=== PATIENT | male | born 1960 | race Caucasian/White ===

== ENCOUNTER 2016-09-26 11:01 | Emergency (ER) | payer OTHER ==
[~2016-09-26] VITALS: Ht 190.5 cm; Wt 93.2 kg
[2016-09-26 11:06] VITALS: BP 140/98; PULSE 75; RESP 17; O2SAT 97
[2016-09-26] MEDS ORDERED: Pantoprazole 4 mg/mL 10 mL Inj IVPUSH ONE (11:10)
[2016-09-26] MEDS ORDERED: Ondansetron 2 mg/mL 2 mL Inj IVPUSH PRN (11:10)
[2016-09-26] MEDS ORDERED: Ondansetron 2 mg/mL 2 mL Inj IVPUSH ONE (11:10)
[2016-09-26] MEDS ORDERED: 0.9% Sodium Chloride 1,000 ML IV ONE ×3 (11:10→15:47)
--- NOTE | 2016-09-26 11:10 | ED.REPORT ---
HPI-Abd Pain M 40 and Over Date of Service Sep 26, 2016 ED Provider: Dr. Bryant Pt is a 56 y/o male presenting to the ED with his c/o N/V/D onset 06:00 today. He c/o associated abdominal pain which he states is secondary to vomiting , diaphoresis. Pt denies hematemesis, bloody stools, melena, fever, chills, cough, SOB, CP. He states this has happened multiple times previously for the past 7-8 years but workups have been negative thus far. There are no known triggers for these episodes. He has been diagnosed with cyclic vomiting syndrome. He has Zofran available at home but when he gets to this point he knows that [id number] medications will not turn it around. Nursing Notes Stated Complaint: VOMITING AND STOMACH CRAMPING Chief Complaint: Male Abdominal Pain Nursing Notes Reviewed: Yes Allergies: Coded Allergies: No Known Allergies (Unverified , 09/26/16) General Time Seen by MD: 11:09 Chief Complaint Other (nvd) Hx Obtained From: Patient Arrived By: Walk-in Sudden in Onset?: No Onset Occurred: 5 - 8 hours ago Symptom Duration: Since onset Progression since Onset: Constant Location: : Epigastric Quality: Aching Radiation: : Does not radiate Severity: Current: Mild Severity: Maximum: Mild Recent Healthcare: Prior workup Similar Sx Previous: Yes Past Medical History Past Medical History Multiple episodes of nausea, vomiting, and diarrhea for the past 8 years - GI workups so far negative Past Surgical History None reported Smoking History Unknown if Ever Smoker Ambulatory Status Independent Review of Systems Constitutional: Denies: Chills, Fever Respiratory: Denies: Non-productive cough, Shortness of breath Cardiovascular: Denies: Chest pain, Dyspnea on exertion GI: Reports: Abdominal pain, Diarrhea, Nausea, Vomiting, Denies: Bloody/tarry stool, Hematemesis, Melena Complete sys rev & neg: except as marked. Skin: Reports Diaphoresis, Denies Rash Physical Exam Initial Vital Signs Vital Signs (First) Date Time Temp Pulse Resp B/P Pulse Ox O2 Delivery O2 Flow Rate FiO2 09/26/16 11:06 35.6 75 17 140/98 97 Room Air Initial VS: Reviewed, Vital signs normal Head / Eyes: Atraumatic, Normocephalic, PERRL Neck: Supple, Full range of motion Extremities: Vascular intact, Neuro intact, No swelling, No tenderness Skin: Warm, Dry, No cyanosis Neurologic: Alert, Oriented, Nonfocal Psychiatric: Mood/affect normal, Behavior normal, Normal thought content General/Constitutional: Awake, Alert, Cooperative, Not toxic appearing Distress / Hydration: Positive: Distress mild Appearance / Presentation: Positive: Ill appearing/not toxic, Pale, Uncomfortable Actively vomiting Respiratory / Chest: Atraumatic, Breath sounds NL, Breath sounds = bilat, No respiratory distress, No rales, No rhonchi, No wheezing, No retractions, No stridor, No chest tenderness, No chest wall deformity, No crepitus Cardiovascular: Heart rate NL, Regular rhythm, Heart sounds NL, No gallop, No murmurs, No rubs, Cap refill not delayed, Peripheral circulation NL Abdomen: Atraumatic, Soft, No guarding, No rebound, No distention, No palpable mass Tenderness/Guarding/Rebound: Positive: Tender epigastric (mild) Back: Full range of motion, Painless range of motion Interpretation & Diagnostics Lab Results Interpretation Result Diagram: 09/26/16 1126 09/26/16 1126 Test 09/26/16 11:26 09/26/16 15:21 White Blood Count 13.6th/mm3 (3.8-10.1) Red Blood Count 5.81mil/mm3 (4.40-5.80) Hemoglobin 15.9g/dL (13.8-17.2) Hematocrit 45.6% (41.0-50.0) Mean Corpuscular Volume 78.5fL (81-100) Mean Corpuscular Hemoglobin 27.4pg (27.0-35.0) Mean Corpuscular Hemoglobin Concent 34.9% (32.0-37.0) Red Cell Distribution Width 15.0% (12.3-15.4) Platelet Count 278bil/L (150-400) Neutrophils (%) (Auto) 85.1% (40-74) Lymphocytes (%) (Auto) 11.7% (14-46) Monocytes (%) (Auto) 2.4% (4-12) Eosinophils (%) (Auto) 0.3% (0-5) Basophils (%) (Auto) 0.2% (0-3) Sodium Level 139mEq/L (134-144) Potassium Level 4.1mEq/L (3.5-5.2) Chloride Level 103mEq/L (97-108) Carbon Dioxide Level 16mmol/L (18-29) Blood Urea Nitrogen 14mg/dL (6-24) Creatinine 0.90mg/dL (0.76-1.27) Estimat Glomerular Filtration Rate 93mL/min (>59) Glucose Level 130mg/dL (60-99) Lactic Acid Level 1.8mmol/L (0.4-2.0) Calcium Level 10.2mg/dL (8.5-10.1) Magnesium Level 2.0mg/dL (1.6-2.6) Total Bilirubin 0.6mg/dL (0.0-1.2) Aspartate Amino Transf (AST/SGOT) 25U/L (0-50) Alanine Aminotransferase (ALT/SGPT) 33U/L (0-44) Alkaline Phosphatase 52U/L (25-150) Troponin T < 0.010ug/L (0.0-0.011) Total Protein 7.7g/dL (6.4-8.4) Albumin 4.6g/dL (3.4-5.0) Lipase 74U/L (13-60) Urine Color Yellow (YELLOW) Urine Appearance Clear (CLEAR,HAZY) Urine pH 8.0 (5.0-8.0) Urine Specific Brooks 1.015 (1.003-1.035) Urine Protein Negativemg/dL (NEG,TRACE) Urine Glucose (UA) 100mg/dL (NEGATIVE) Urine Ketones 15mg/dL (NEGATIVE) Urine Occult Blood Negative (NEGATIVE) Urine Nitrite Negative (NEGATIVE) Urine Bilirubin Negative (NEGATIVE) Urine Urobilinogen Normalmg/dL (NORMAL) Urine Leukocyte Esterase Negative (NEGATIVE) Urine RBC 0-2/hpf (0-2) Urine WBC 0-5/hpf (0-5) Urine Epithelial Cells None/hpf (NONE-MOD) Urine Crystals None seen (NONE SEEN) Urine Bacteria Few/hpf (NONE-FEW) Urine Hyaline Casts None/lpf (NONE) Urine Granular Casts None seen (NONE SEEN) Urine Waxy Casts None seen (NONE SEEN) Urine Red Blood Cell Casts None seen (NONE SEEN) Urine White Blood Cell Casts None seen (NONE SEEN) Urine Mucus None seen (None Seen) Urine Trichomonas None seen (NONE SEEN) Urine Yeast None (NONE SEEN) Urinalysis Comment None Urine Culture Reflexed Not indicated ECG Interpretation Time: 15:34 Interpreted by: ED physician Normal ECG Interpretation: Normal ECG w/ rate of... (83), Normal rate, Normal sinus rhythm, No acute ischemic changes, Normal QRS, Normal axis, Normal intervals, Adequate tracing X-Ray Abdominal Interpretation IMPRESSION: No abnormality is seen in acute abdomen series. Cause of pain is not identified. Dictated by: Vincenzo Delaney M.D. on 09/26/2016 at 13:33 Approved by: Vincenzo Delaney M.D. on 09/26/2016 at 13:33 Study: 4 view Interpretation / Wet Read by: Interpret - Radiologist Re-Eval/Medical Decision Med Decision/Clinical Course 56-year-old male with a history of cyclic vomiting syndrome that occurs episodically without triggers approximately every 6 months presents with a typical episode. He was treated with 2 L of normal saline, Zofran, Phenergan, Haldol, Ativan, and Dilaudid for abdominal pain. When he first arrived he was in significant distress, diaphoretic, and actively vomiting. At the time of discharge he was feeling much better. He states that he has had significant workups in the past by his gastroenterology have been unrevealing including upper and lower endoscopy and multiple lab tests. Today he has some mild leukocytosis which he states is typical for him during these episodes but otherwise labs were okay. I also considered cardiac causes. He had an unremarkable EKG as well as negative troponin. Patient is appreciative of the care and plans to follow-up with his PCP. He has Zofran at home available for any recurrent nausea. Time of Eval: 14:27 Re-Evaluation/Progress Note: Pt rechecked. Still experiencing abdominal pain. Vomiting has ceased. He is feeling a little bit better. Time of Eval: 16:33 Re-Evaluation/Progress Note: Pt rechecked. No vomiting. Informed pt of plan for treatment. Pt understands and agrees with plan for treatment. F/U instructions and RTER warnings given. All questions addressed. Counseled Regarding: Diagnosis, Lab results, Need for follow-up, When/why to return to ED Discharge & Departure Primary Impression: Cyclical vomiting Vomiting Intractability: non-intractable Nausea presence: with nausea Qualified Code: G43.A0 - Cyclical vomiting, not intractable Additional Impressions: Leukocytosis Leukocytosis type: unspecified Qualified Code: D72.829 - Elevated white blood cell count, unspecified Generalized abdominal pain Ruled Out: Acute coronary syndrome Disposition: Home Vital Signs - All Vital Signs Date Time Temp Pulse Resp B/P Pulse Ox O2 Delivery O2 Flow Rate FiO2 09/26/16 17:13 36.2 94 18 123/85 100 Room Air 09/26/16 14:54 36.3 72 13 160/93 98 Room Air 09/26/16 13:34 50 153/92 100 Room Air 09/26/16 11:06 35.6 75 17 140/98 97 Room Air )( All Prior VS Reviewed: Yes Condition: Stable Patient Instructions: Acute Nausea and Vomiting (ED) Additional Instructions: Your labs were normal other than a mildly elevated WBC count which can occur with vomiting. Take your home Zofran as needed for nausea or vomiting. Follow-up with your primary care doctor next week. Discuss the possibility of standing orders at the [facility]. Return to the emergency department for high fever, blood in your vomit or stool , intractable vomiting, severe abdominal pain, or for other concerning symptoms. Referrals: OTHER,PHYSICIAN (PCP) (Family) Scribe Attestation Portions of this note were transcribed by Rasta Amador. I, Dr. Bryant personally performed the history, physical exam and medical decision-making; I reviewed and confirmed the accuracy of the information in the transcribed note. Signed by Juan Bahena, 09/26/16 - 1130 Eugenio Bryant DO Sep 26, 2016 11:10 RASTA AMADOR Sep 26, 2016 11:17
[2016-09-26] MEDS: HYDROmorphone 0.5 mg/0.5 mL iSecure Syringe IVPUSH PRN ×3 (11:34→15:37)
[2016-09-26 11:56] LABS: BASOPHILS % (AUTO) 0.2 % (0-3); EOSINOPHILS % (AUTO) 0.3 % (0-5); MONOCYTES % (AUTO) 2.4 % (4-12); Mean Corpuscular Hemoglobin 27.4 pg (27.0-35.0); Mean Corpuscular Volume 78.5 fL (81-100); NEUTROPHILS % (AUTO) 85.1 % (40-74); Platelet Count 278 bil/L (150-400)
[2016-09-26] MEDS ORDERED: Promethazine Inj 25 MG in 0.9% Sodium Chloride-Pha MIX 100 ML IV ONE (12:35)
[2016-09-26 13:34] VITALS: BP 153/92; PULSE 50; O2SAT 100
--- NOTE | 2016-09-26 13:35 | DRSVH ---
PROCEDURE: X-RAY ACUTE ABDOMINAL SERIES ([id number]) INDICATIONS: abdominal pain TECHNIQUE: One view chest and two views of the abdomen were acquired. COMPARISON: [facility], , ABD ACUTE SERIES, 02/17/2015, 22:57. FINDINGS: Surgical changes and devices: None. Chest: Lungs are clear. Heart size is normal. No pleural effusions. No pneumoperitoneum. Abdomen: Bowel gas pattern is normal. No suspicious calcifications. Visualized solid organ contour s appear normal. Bones: No suspicious bony lesions. IMPRESSION: No abnormality is seen in acute abdomen series. Cause of pain is not identified. Dictated by: Vincenzo Delaney M.D. on 09/26/2016 at 13:33 Approved by: iVncenzo Delaney M.D. on 09/26/2016 at 13:33
[2016-09-26] MEDS ORDERED: Haloperidol 5 mg/mL Inj IVPUSH ONE (14:35)
[2016-09-26 14:54] VITALS: BP 160/93; PULSE 72; RESP 13; O2SAT 98
[2016-09-26 15:49] LABS: APPEARANCE,URINE CLEAR (CLEAR,HAZY); COLOR,URINE YELLOW (YELLOW); OCCULT BLOOD,URINE NEGATIVE (NEGATIVE); UROBILINOGEN,URINE NORMAL (NORMAL)
[2016-09-26 17:13] VITALS: BP 123/85; PULSE 94; RESP 18; O2SAT 100
== END 2016-09-26 17:17 | disposition home or self-care (01) ==
LOC: SED 11:01
DX: G43.A0 Cyclical vomiting, in migraine, not intractable (principal); D72.829 Elevated white blood cell count, unspecified; R10.84 Generalized abdominal pain
CPT/HCPCS: 74022; 80053; 81000; 83605; 83690; 83735; 84484; 85025; 93005; 96361; 96374; 96375; 96376; 99285; J1170; J1630; J2060; J2405; J2550; J7030

== ENCOUNTER 2016-09-28 07:16 | Emergency (ER) | payer OTHER ==
[~2016-09-28] VITALS: Ht 190.5 cm; Wt 93.2 kg
[2016-09-28 07:18] VITALS: BP 161/96; PULSE 61; RESP 20; O2SAT 97
[2016-09-28] MEDS ORDERED: Ondansetron 2 mg/mL 2 mL Inj ONE (07:30)
--- NOTE | 2016-09-28 07:31 | ED.REPORT ---
HPI-NVD Date of Service Sep 28, 2016 ED Provider: Dr. Sam Best The patient is a 56 year old male w/ a hx of of cyclical vomiting who presents to the ED due to cyclical vomiting onset 2 hrs ago. He is actively retching in triage. The patient requests Dilaudid in the room. He was seen here 2 days ago for n/v/d and similar symptoms. He states this has happened multiple times previously for the past 7-8 years but workups have been negative thus far. There are no known triggers for these episodes. He has been diagnosed with cyclic vomiting syndrome by Dr. Raz INIGUEZ in [place]. He uses Zofran ODT at home but when he gets to this point he knows that [id number] medications will not turn it around. Associated symptoms include diarrhea, chills, and diaphoresis. He denies fever. He denies drug and alcohol use. Nursing Notes Stated Complaint: VOMITING Chief Complaint: Male Abdominal Pain Nursing Notes Reviewed: Yes Allergies: Coded Allergies: No Known Allergies (Unverified , 09/26/16) General Time Seen by MD: 07:30 Chief Complaint Vomiting Hx Obtained From: Patient Arrived By: Walk-in Onset Occurred: Just prior to arrival Symptom Duration: Since onset Past Medical History Past Medical History Multiple episodes of nausea, vomiting, and diarrhea for the past 8 years - GI workups so far negative Past Surgical History None reported Smoking History Unknown if Ever Smoker Social History Other Social History: Good social support, Local resident Ambulatory Status Independent Review of Systems Constitutional: Reports: Chills, Denies: Fever GI: Reports: Vomiting Skin: Reports Diaphoresis Complete sys rev & neg: except as marked. Physical Exam Initial Vital Signs Vital Signs (First) Date Time Temp Pulse Resp B/P Pulse Ox O2 Delivery O2 Flow Rate FiO2 09/28/16 07:18 35.8 61 20 161/96 97 Initial VS: Reviewed Head / Eyes: Atraumatic, Normocephalic, PERRL ENT: Mucous membranes moist, Conjunctiva normal Respiratory: Breath sounds normal, Clear to auscultation, No respiratory distress Extremities: Vascular intact, No swelling, No tenderness Skin: Warm, Dry General/Constitutional: Awake, Alert Distress / Hydration: Positive: Distress mild Abdomen: Atraumatic, Soft, Non-tender, No guarding, No rebound, No distention Heart Rate / Rhythm: Positive: Bradycardia Interpretation & Diagnostics Lab Results Interpretation Result Diagram: 09/28/16 0705 09/28/16 0705 Test 09/28/16 07:05 09/28/16 07:25 White Blood Count 10.4th/mm3 (3.8-10.1) Red Blood Count 5.50mil/mm3 (4.40-5.80) Hemoglobin 15.1g/dL (13.8-17.2) Hematocrit 44.3% (41.0-50.0) Mean Corpuscular Volume 80.5fL (81-100) Mean Corpuscular Hemoglobin 27.5pg (27.0-35.0) Mean Corpuscular Hemoglobin Concent 34.1% (32.0-37.0) Red Cell Distribution Width 15.1% (12.3-15.4) Platelet Count 258bil/L (150-400) Neutrophils (%) (Auto) 75.2% (40-74) Lymphocytes (%) (Auto) 17.5% (14-46) Monocytes (%) (Auto) 5.4% (4-12) Eosinophils (%) (Auto) 0.8% (0-5) Basophils (%) (Auto) 0.4% (0-3) Sodium Level 140mEq/L (134-144) Potassium Level 4.5mEq/L (3.5-5.2) Chloride Level 103mEq/L (97-108) Carbon Dioxide Level 22mmol/L (18-29) Blood Urea Nitrogen 20mg/dL (6-24) Creatinine 1.13mg/dL (0.76-1.27) Estimat Glomerular Filtration Rate 72mL/min (>59) Glucose Level 123mg/dL (60-99) Calcium Level 9.5mg/dL (8.5-10.1) Magnesium Level 2.2mg/dL (1.6-2.6) Total Bilirubin 0.5mg/dL (0.0-1.2) Aspartate Amino Transf (AST/SGOT) 24U/L (0-50) Alanine Aminotransferase (ALT/SGPT) 30U/L (0-44) Alkaline Phosphatase 46U/L (25-150) Total Protein 7.3g/dL (6.4-8.4) Albumin 4.3g/dL (3.4-5.0) Lipase 150U/L (13-60) Hold [place] Tube Received (Received) ECG Interpretation Time: 07:39 Interpreted by: ED physician Rhythm / Conduction: Bradycardia (rate 57) Re-Eval/Medical Decision Med Decision/Clinical Course Consistent with cyclical vomiting, lipase mildly elevated however he is tolerating orals after IV Haldol. I do not think that this is clinically significant pancreatitis or other significant infection. Patient feels better and will be discharged. Counseled Regarding: Diagnosis, Lab results, Need for follow-up, When/why to return to ED Discharge & Departure Impression: Primary Impression: Cyclical vomiting Disposition: Home Discharge Condition All VS Reviewed: Yes Condition: Stable Additional Instructions: Your labs are normal other than a mildly elevated WBC and lipase which is nonspecific and may occur with intractable vomiting. Continue your home Zofran for nausea and vomiting. Please follow-up with your Primary Care provider. Return to the Emergency Department should you develop fever, blood in stool or vomit, intractable vomiting, severe abdominal pain, or other concerning symptoms. Referrals: Marcial Whitt MD (PCP) Scribe Attestation Portion of this note were transcribed by Ekaterina Miller. I, Dr. Best, personally performed the history, physical exam, and medical decision-making: I reviewed and confirmed the accuracy for the information in the transcribed note. Signed by: justyn Babin, 09/28/16 1000 copies to: Marcial Whitt MD, Timothy Esthela HUGO Sep 28, 2016 07:31 Ekaterina Miller Sep 28, 2016 07:42 Emigdio Keene MD Sep 28, 2016 09:28
[2016-09-28] MEDS ORDERED: 0.9% Sodium Chloride 1,000 ML IV ONE (07:33)
[2016-09-28] MEDS ORDERED: Haloperidol 5 mg/mL Inj IVPUSH ONE (07:35)
[2016-09-28] MEDS ORDERED: Ondansetron 2 mg/mL 2 mL Inj IVPUSH PRN (07:35)
[2016-09-28 07:51] LABS: BASOPHILS % (AUTO) 0.4 % (0-3); EOSINOPHILS % (AUTO) 0.8 % (0-5); MONOCYTES % (AUTO) 5.4 % (4-12); Mean Corpuscular Hemoglobin 27.5 pg (27.0-35.0); Mean Corpuscular Volume 80.5 fL (81-100); NEUTROPHILS % (AUTO) 75.2 % (40-74); Platelet Count 258 bil/L (150-400)
[2016-09-28 08:02] LABS: Magnesium 2.2 mg/dL (1.6-2.6)
== END 2016-09-28 09:35 | disposition home or self-care (01) ==
LOC: SED 07:16
DX: G43.A0 Cyclical vomiting, in migraine, not intractable (principal)
CPT/HCPCS: 80053; 83690; 83735; 85025; 93005; 96361; 96374; 96375; 99284; J1630; J2405; J7030